=== PATIENT | female | born 1955 | race Caucasian/White ===

== ENCOUNTER 2021-06-06 06:57 | Day surgery (SDC) | payer MEDICARE ==
[~2021-06-06 06:57] MED LIST: Acetaminophen 325 MG Tab PO SCH; Lactated Ringers 1,000 ML IV SCH; Lidocaine 1%/Sod Bicarbonate in NS 8.4% 1 ML Syringe IDERM PRN; Morphine 8 MG, EPINEPHrine 0.3 MG, Cefuroxime 750 MG, Ketorolac 30 MG, Sodium Chloride ... PRN; Pregabalin 25 MG Cap PO SCH; Sodium Chloride 0.9% 10 ML Syringe FLUSH SCH; oxyCODONE ER 10 MG TAB.ER PO SCH
[2021-06-06] MEDS ORDERED: Propofol 200 MG/20 ML SDV ONE ×2 (07:54→09:08)
[2021-06-06] MEDS ORDERED: fentaNYL 100 MCG/2 ML SDV ONE (07:54)
[2021-06-06] MEDS ORDERED: ceFAZolin 1 GM Vial ONE (07:54)
[2021-06-06] MEDS ORDERED: Midazolam 1 MG/ML 2 ML SDV ONE (07:54)
[2021-06-06] MEDS ORDERED: Ondansetron 4 MG/2 ML SDV ONE (08:40)
[2021-06-06] MEDS ORDERED: EPINEPHrine 1 MG/ML SDV ONE (08:53)
[2021-06-06] MEDS ORDERED: Ropivacaine 0.5% 5 MG/ML 30 ML SDV ONE (08:53)
[2021-06-06] MEDS ORDERED: HYDROmorphone 0.5 MG/0.5 ML Syringe IVPUSH PRN (09:02)
[2021-06-06] MEDS ORDERED: Ondansetron 4 MG/2 ML SDV IVPUSH PRN (09:02)
[2021-06-06] MEDS ORDERED: fentaNYL 100 MCG/2 ML SDV IVPUSH PRN (09:02)
[2021-06-06] MEDS: Vancomycin 1 GM SDV ONE ×3 (09:23→10:10)
== END 2021-06-06 14:05 | disposition home or self-care (01) ==
LOC: JD.SDS 06:57
PROVIDERS: ATTEND Orthopaedic Surgery
DX: M17.12 Unilateral primary osteoarthritis, left knee (principal); E78.00 Pure hypercholesterolemia, unspecified; Z79.899 Other long term (current) drug therapy; Z88.5 Allergy status to narcotic agent; Z88.2 Allergy status to sulfonamides; Z98.890 Other specified postprocedural states
CPT/HCPCS: 27447; 73560; 97110; 97116; 97161; A9270; C1713; C1776; J0171; J0690; J0697; J1885; J2250; J2270; J2370; J2405; J2704; J2795; J3010; J3370; J7120; 01480; 64450; 76942